=== PATIENT | male | born 1935 | race Caucasian/White ===

== ENCOUNTER → 2016-11-19 | Outpatient (CLI) | payer OTHER ==
[~2016-11-19] MED LIST: ALBUAER2 INH; APIX1TAB PO; CARV12.5 PO; DIGO0.122 PO; FERR1TAB13 PO; MGCUDL400 PO; NITRSPR6 PO; PRMT25 PO; SIMV10TA2 PO; SPIR25TA PO; SYMIN160 INH; TRAM-10 PO; UMEC1AER INH
--- NOTE | 2016-11-19 10:56 | DIAGNOSTIC IMAGING REPORT ---
CHEST 2 VIEWS ROUTINE CLINICAL HISTORY: J90 Pleural [id number] dyspnea COMPARISON STUDY: 10/01/2016 FINDINGS: Emphysematous change. Prior median sternotomy. Chronic pleural reactive changes left base. Chronic apical pleural thickening and fibrotic scarring. IMPRESSION: Chronic and postoperative change. No new interval or acute finding. Electronically signed by: Shakir Houston M.D. 11/19/2016 10:55 AM Dictated Date/Time: 11/19/2016 10:54 AM
== END | disposition home or self-care (01) ==
LOC: C.RAD1850 10:36
PROVIDERS: ATTEND Surgery
DX: J90 Pleural effusion, not elsewhere classified (principal)